=== PATIENT | male | born 1985 | race Caucasian/White ===

== ENCOUNTER 2017-06-04 18:28 | Emergency (ER) | payer OTHER ==
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
[2017-06-04 20:16] VITALS: BP 126/74; PULSE 86; RESP 18; TEMP 98.1; O2SAT 93
== END 2017-06-04 20:16 | disposition home or self-care (01) ==
DX: S20.212A Contusion of left front wall of thorax, initial encounter (principal); V13.4XXA Pedal cycle driver injured in collision with car, pick-up truck or van in traffic accident, initial encounter; Y92.410 Unspecified street and highway as the place of occurrence of the external cause; Y99.8 Other external cause status; Y93.55 Activity, bike riding